=== PATIENT | male | born 1970 ===

== ENCOUNTER 2018-10-08 19:08 | Emergency (ER) | payer SELFPAY ==
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
[2018-10-08] MEDS ORDERED: Sodium Chloride 0.9% 1,000 ML IV STA (20:59)
[2018-10-08 21:14] LABS: BASO # 0.1 K/uL (0.0-0.2); EOS # 0.1 K/uL (0.0-0.7); EOS % 0.8 % (0.0-4.0); HEMOGLOBIN 15.7 g/dL (12.0-18.0); LYMPH # 2.3 K/uL (1.0-4.3); LYMPH % 27.3 % (20.0-40.0); MEAN CORPUSCULAR HGB CONC 33.3 g/dL (33.0-37.0); MEAN PLATELET VOLUME 9.7 fl (7.2-11.7); MONO # 0.4 K/uL (0.0-0.8); NEUT # 5.5 K/uL (1.8-7.0); NEUT % 65.9 % (50.0-75.0); NRBC % 0.1 % (0.0-0.0); RBC 5.23 Mil/uL (4.40-5.90); RED CELL DISTRIBUTION WIDTH 13.1 % (11.5-14.5); WHITE BLOOD COUNT 8.3 K/uL (4.8-10.8)
[2018-10-08 21:23] LABS: BLOOD UREA NITROGEN 10 mg/dl (9-20); CALCIUM 9.8 mg/dL (8.4-10.2); GFR NON-AFRICAN AMERICAN > 60
[2018-10-08] MEDS ORDERED: Iohexol 300 100 ML IJ ONE (21:45)
[2018-10-09 00:20] VITALS: BP 106/60; PULSE 66; RESP 16; TEMP 98.3; O2SAT 96
--- NOTE | 2018-10-09 09:10 | RAD ---
Date of service: 10/08/2018 HISTORY: NECK SOFT TISSUE RADIOGRAPHS COMPARISON: No comparison available. TECHNIQUE: Three views obtained. FINDINGS: The epiglottis appears normal thickness overall. No retained radiodense foreign body is appreciate throughout the neck soft tissues. Calcified thyroid cartilage is appreciated diffusely. There is normal aeration appreciated throughout the visualized hypopharynx and upper mid trachea. 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 Straightened cervical curvature noted. IMPRESSION: No retained radiodense foreign body identified. CT is available follow-up if clinically warranted.
--- NOTE | 2018-10-09 15:01 | CT ---
Date of service: 10/08/2018 PROCEDURE: CT NECK WITH CONTRAST HISTORY: right side throat foreign body sensation COMPARISON: Neck soft tissue radiographs also performed 10/08/2018. TECHNIQUE: CT of the neck with intravenous contrast. Coronal and sagittal reformats generated. Intravenous contrast dose: Omnipaque 300, 100 cc Radiation dose: Total exam DLP = 337.99 mGy-cm. This CT exam was performed using one or more of the following dose reduction techniques: Automated exposure control, adjustment of the mA and/or kV according to patient size, and/or use of iterative reconstruction technique. FINDINGS: NASOPHARYNX: Unremarkable. SUPRAHYOID NECK: Unremarkable oropharynx, oral cavity, parapharyngeal space and retropharyngeal space. INFRAHYOID NECK: Unremarkable larynx, hypopharynx, and supraglottic space. Vocal cords intact. MASS: None. GLANDS: Parotid and submandibular glands unremarkable. Normal size thyroid gland, without nodule. LYMPH NODES: Normal. No lymphadenopathy. CERVICAL SPINE: No fracture or focal lesion. VASCULAR STRUCTURES: Unremarkable. OTHER FINDINGS: None. IMPRESSION: Unremarkable contrast enhanced CT of the neck. No retained radiodense foreign body appreciable throughout the supra or infrahyoid neck soft tissues. Concordant preliminary report from [facility], 10/08/2017, 10:13 p.m..
== END 2018-10-08 23:02 | disposition home or self-care (01) ==
LOC: H.ER 19:08
DX: R13.10 Dysphagia, unspecified (principal)
CPT/HCPCS: 70360; 70491; 80048; 85025; 99282; Q9967